=== PATIENT | male | born 1990 | race Caucasian/White ===

== ENCOUNTER 2021-10-23 18:43 | Emergency (ER) | payer MEDICAID, SELFPAY ==
[2021-10-23 18:45] VITALS: BP 116/73; PULSE 86; RESP 18; TEMP 36.9; O2SAT 96; BMI 20.1
--- NOTE | 2021-10-23 18:57 | XR_ITS ---
PROCEDURE INFORMATION: Exam: XR Chest Exam date and time: 10/23/2021 7:26 PM Age: 31 years old Clinical indication: Other: Clavicular (rt) pain; Additional info: Injury, pain/swelling to RT collar bone. No chest complaints TECHNIQUE: Imaging protocol: Radiologic exam of the chest. Views: 2 views. COMPARISON: CR CXR1 CHEST-PORTABLE 12/15/2015 4:56 PM FINDINGS: Lungs: Unremarkable. No consolidation. Pleural spaces: Unremarkable. No pleural effusion. No pneumothorax. Heart/Mediastinum: Unremarkable. No cardiomegaly. Bones/joints: Unremarkable. No evidence of acute osseous injury. IMPRESSION: No acute findings.
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
--- NOTE | 2021-10-23 18:59 | PC.NURSE ---
Notified rad of xrays
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
[2021-10-23 19:44] VITALS: BP 121/74; PULSE 81; RESP 18; TEMP 36.9; O2SAT 97
[2021-10-23 19:48] VITALS: BP 143/81; PULSE 78; RESP 16; TEMP 36.7; O2SAT 98
== END 2021-10-23 19:53 | disposition home or self-care (01) ==
PROVIDERS: Emergency Provider Emergency Medicine
DX: S46.911A Strain of unspecified muscle, fascia and tendon at shoulder and upper arm level, right arm, initial encounter (principal); S40.011A Contusion of right shoulder, initial encounter; W20.8XXA Other cause of strike by thrown, projected or falling object, initial encounter
CPT/HCPCS: 29105; 71046; 73000; 96372; 99283

== ENCOUNTER 2023-01-21 08:30 | Outpatient (RCR) | payer MEDICAID, SELFPAY | END 2023-01-21 08:35 | disposition home or self-care (01) | LOC: PT 08:30 | PROVIDERS: Visit Provider Nurse Practitioner Family | DX: M54.50 Low back pain, unspecified (principal); S32.009A Unspecified fracture of unspecified lumbar vertebra, initial encounter for closed fracture | CPT/HCPCS: 97010; 97014; 97110; 97163; 97530; G0283 ==